=== PATIENT | female | born 1955 | race Two or more races ===

== ENCOUNTER 2024-04-10 11:11 | Outpatient (CLI) | payer OTHER | END 2024-04-10 11:21 | disposition home or self-care (01) | LOC: RAD 11:11 | PROVIDERS: ATTEND Physical Medicine & Rehabilitation Pediatric Rehabilitation Medicine | DX: M41.34 Thoracogenic scoliosis, thoracic region (principal); M21.769 Unequal limb length (acquired), unspecified tibia and fibula; C34.92 Malignant neoplasm of unspecified part of left bronchus or lung ==